=== PATIENT | male | born 1975 | race Caucasian/White ===

== ENCOUNTER 2019-04-30 10:07 | Emergency (ER) | payer OTHER ==
[~2019-04-30] VITALS: Ht 175.3 cm; Wt 88.0 kg
[2019-04-30 10:12] VITALS: Ht 175.3 cm; Wt 88.0 kg
[2019-04-30 13:10] VITALS: BP 150/78
== END 2019-04-30 13:10 | disposition home or self-care (01) ==
LOC: ED 10:07
DX: F32.9 Major depressive disorder, single episode, unspecified (principal); F41.9 Anxiety disorder, unspecified; Z90.49 Acquired absence of other specified parts of digestive tract